=== PATIENT | female | born 1945 | race Caucasian/White ===

== ENCOUNTER → 2016-11-05 | Outpatient (CLI) | payer MEDICARE ==
[~2016-11-05] MED LIST: AMERINET CHOICE1 GM IV; AMITRIPTYLINE100 M1 PO; AMITRIPTYLINE25 MG PO; ARICEPT10 MG PO; ASPIRIN 325MG325 MG PO; ASPIRIN 81MG TA81 MG PO; CEFUROXIME AXE250 M1 PO; CELEXA40 MG PO; CLONAZEPAM 1MG T1 MG PO; DONEPEZIL HCL10 MG PO; ELAVIL25 MG PO; FIBER CON625 MG PO; HYDROCODONE1 TABLET PO; IRON TABLETS325 MG PO; ISOSORBIDE MONO60 MG PO; LEVAQUIN500 MG PO; LIPITOR40 MG PO; LORTAB 5/500 501 TAB PO; METOPROLOL25 MG PO; MOBIC15 MG PO; NORCO 325 MG-101 TAB PO; PLAVIX 75MG TAB75 MG PO; PRAVACHOL 40MG40 MG PO; PRILOSEC20 M1 PO; PROTONIX 40MG T40 MG PO; Prilosec20 MG PO; RANEXA500 M1 PO; RESTORIL 30MG C30 MG PO; SALINE FLUSH 1010 ML IV; Tramadol HCl50 MG PO; Xanax0.25 MG PO; ZITHROMAX 250M250 MG PO; ZITHROMAX Z-PA250 M2 PO
[2016-11-05 18:23] LABS: AMPHETAMINES/METAMPHETAMINES NEGATIVE ng/mL (<1000)
== END ==
LOC: LAB 17:15
PROVIDERS: Emergency Medicine
DX: Z79.899 Other long term (current) drug therapy (principal)

== ENCOUNTER → 2017-04-08 | Outpatient (CLI) | payer MEDICARE ==
[2017-04-08 17:42] LABS: AMPHETAMINES/METAMPHETAMINES NEGATIVE ng/mL (<1000)
== END ==
LOC: LAB 16:33
PROVIDERS: Emergency Medicine
DX: Z79.899 Other long term (current) drug therapy (principal)

== ENCOUNTER → 2017-07-10 | Outpatient (CLI) | payer MEDICARE ==
[2017-07-10 13:08] LABS: AMPHETAMINES/METAMPHETAMINES NEGATIVE ng/mL (<1000)
== END ==
LOC: LAB 11:14
PROVIDERS: Emergency Medicine
DX: Z79.899 Other long term (current) drug therapy (principal)

== ENCOUNTER → 2017-08-11 | Outpatient (CLI) | payer MEDICARE ==
[2017-08-11 13:51] LABS: AMPHETAMINES/METAMPHETAMINES NEGATIVE ng/mL (<1000)
== END ==
LOC: LAB 12:23
PROVIDERS: Emergency Medicine
DX: Z79.899 Other long term (current) drug therapy (principal)

== ENCOUNTER 2017-08-25 13:09 | Inpatient (IN) | payer MEDICARE ==
[~2017-08-25] VITALS: Ht 162.6 cm; Wt 68.7 kg
[2017-08-25 13:11] VITALS: BP 118/57
[2017-08-25 13:35] LABS: LYMPH # 0.8 K/mm3 (0.7-4.5); LYMPH % 4.9 % (10-50.0)
[2017-08-25 13:36] LABS: URINE BILIRUBIN - DIPSTICK NEGATIVE (NEG); URINE BLOOD NEGATIVE (NEG)
[2017-08-25 13:46] LABS: HEMOGLOBIN 13.2 g/dL (12.2-16.2)
--- NOTE | 2017-08-25 13:52 | Emergency Room Report ---
History of Present Illness Time Seen by MD Saenz Presenting Problem in Triage Pt arrived:Ambulance Stretcher Presenting Problem:PT C/O INCREASED WEAKNESS. N/V/D FOR THE PAST COUPLE OF DAYS Onset of symptoms date/time:/ or onset unknown for:MEDICAL HX UNKNOWN Treatment Prior to Arrival: PT MONITORED AND V/S WNL SPA MANAGER Provided by:EMT Sepsis Risk Assessment: Temp: 98.9 B/P: 118/57 MAP: 77 Pulse: 85 Resp: 16 Recent fever? N Clinical Suspician of Infection? N Mental Status: 1 - Regular (Normal Baseline) Sepsis Risk:Low Sepsis Risk Have you (or family members/close friends) recently traveled outside the [place]? N If Yes, where/when: Have you had exposure to infectious disease within the past month? N TB? Other? Specify: Source patient, RN notes reviewed Exam Limitations no limitations Comment Pt comes to the ED with increasing weakness, Nausea, vomiting, and diarrhea for the past 2 to 3 days. She has had a colonoscopy and EGD by a Dr. Acosta in [place] but no definitive diagnosis that she is aware of. She has lost about 40 to 50 lbs in the past year by her history. She also has a history of CAD s/p CABG X 3 in 1993 and has 5 stents in the heart as well. She has also had her GB and appendix removed and polyps taken from the colon. She has not noticed any BRB nor melena Cardiac Chest Pain Chest pain indicative of cardiac No ALLERGIES Coded Allergies: Iodinated Contrast- Oral and IV Dye (IODINATED CONTRAST MEDIA - IV DYE) () Latex, Natural Rubber (02/01/16) ciprofloxacin (From CIPRO) (02/01/16) Home Medications Active Scripts SOD CHLOR 0.9% FLUSH (Saline Flush 10 Ml Syringe) 10 ML IV BID #20 INJ Ref 2 Prov: 10/26/15 Reported Medications HYDROCODONE/ACETAMINOPHEN (Matthews 10-325 Tablet) 1 TAB PO Q6H Atorvastatin Calcium (Atorvastatin) 40 MG PO QHS ASPIRIN (Aspirin) 81 MG PO DAILY Pantoprazole Sodium (Protonix 40MG TAB) 40 MG PO DAILY ISOSORBIDE MONONITRATE (Isosorbide Mononitrate ER) 60 MG PO DAILY CLOPIDOGREL BISULFATE (PLAVIX) 75 MG PO DAILY RANOLAZINE (RANEXA) 500 MG PO BID Clonazepam (Clonazepam 1MG) 1 MG PO BIDP PRN anxiety #60 DONEPEZIL HCL (Donepezil HCl) 10 MG PO QHS #30 History Medical History General CAD? No Angina: Yes SC: Yes Hypertension? Yes Hyperlipidemia? Yes CHF? No DVT? No PE? No COPD? Yes Asthma? Yes Anemia? No GERD? Yes Gastric ulcers? No GI Bleed? No Hernia? No Thyroid Problems? No Hypothyroidism? No CVA? Yes Seizures? No Diabetes? No Renal Insuffiency? No End Stage Renal Disease? No UTI? No Stones? No BPH? No GB Disease: Yes Nephritic Syndrome? No Asplenia? No Hepatitis? No Sickle Cell Disease? No Arthritis? Yes Migraines? No Cataracts? Yes Glaucoma? No MRSA? No HIV? No TB? No Anxiety? Yes Depression? No Cancer? No More? No Immunization Hx DT/Tetanus 1-4 YRS Flu 2014-16FSN Pneumonia Received In Past Surgical Hx Previous Surgery?Y Coronary Artery Bypass SEVERAL LUMPECTOMIES GALLBLADDER appendectomy HYSTERECTOMY D&C- SEVERAL STENT PLACEMENT X4 Family History Family Hx Diabetes No CAD Yes Hypertension Yes Hyperlipidemia No Cancer Yes TB No Social History Smoking Hx Smoker: Former Smoker Tobacco: No Alcohol Alcohol: No Review of Systems All Other Systems Reviewed and Negative Constitutional see HPI Cardiovascular see HPI Gastrointestinal see HPI Physical Exam Vital Signs Vital Signs Date Time Temp Pulse Resp B/P Pulse O2 O2 Flow FiO2 Ox Delivery Rate 08/25 1652 101.2 85 18 120/51 96 2 08/25 1539 100.8 89 20 131/55 96 08/25 1407 16 08/25 1311 98.9 85 16 118/57 95 General Appearance moderate distress, lethargic Respiratory Status No: respiratory distress. Lung Sounds bilateral: normal breath sounds. Cardiovascular normal exam, regular rate/rhythm Gastrointestinal abnormal bowel sounds, distended, no guarding, no rebound, tenderness Neurologic alert, putty glazer II-XII nml as tested Medical Decision Making LABS/Meds/Orders Pt receiving controlled substance in ED? Yes Lazaro was queried for this patient? No Reason not queried - emergent pt cond=no time Results/Orders Laboratory Tests 08/25/17 1435: Lactic Acid 1.6 08/25/17 1320: B-Natriuretic Peptide 215 H 08/25/17 1320: Sodium 136, Potassium 3.5, Chloride 99, Carbon Dioxide 28, BUN 10, Creatinine 1.1 H, Estimated Creat Clear 44 L, Estimated GFR (MDRD) 49 L, Glucose 80, Calcium 9.5, Total Bilirubin 0.8, AST 25, ALT 28, Alkaline Phosphatase 98, Creatine Kinase 65, CK-MB (CK-2) Rel Index 0.8, CK and CKMB Interp < 0.5, Troponin I < 0.02, Total Protein 7.8, Albumin 3.1 L, Globulin 4.7 H, Albumin/ Globulin Ratio 0.7 L, Amylase 20 L, Lipase 48 L, WBC 16.9 H, RBC 4.54, Hgb 13.2, Hct 40.3, MCV 88.8, RDW 13.1, Plt Count 294, MPV 7.4, Gran % 91.6 H, Gran # 15.5 H, Total Counted 100, Lymphocytes % 4.9 L, Monocytes % 2.3, Eosinophils % 0.9, Basophils % 0.4, Neutrophils 92 H, Lymphocytes (Manual) 5 L, Lymphocytes # 0.8, Monocytes (Manual) 2, Monocytes # 0.4, Eosinophils # 0.2, Eosinophils # (Manual) 1, Basophils # 0.1, RBC/WBC/PLT Morphology NORMAL, Platelet Estimate NORMAL, PUBS MCHC 32.5, MCH 28.8, Urine Color YELLOW, Urine Appearance CLEAR, Urine pH 6.0, Ur Specific [place] 1.020, Urine Protein TRACE H, Urine Ketones TRACE H, Urine Blood NEGATIVE, Urine Nitrate NEGATIVE, Urine Bilirubin NEGATIVE, Urine Urobilinogen 1.0, Ur Leukocyte Esterase 1+ H, Urine RBC OCC, Urine WBC 3-5, Ur Squamous Epith Cells OCC, Urine Bacteria 2+, Urine Glucose NEGATIVE Current Medication Orders Sig/Mack Start time Last Medication Dose Route Stop Time Status Admin Acetaminophen 1,000 MG ONCE ONE 08/25 1730 AC PO 08/25 173 Azithromycin 500 MG ONCE ONE 08/25 173 AC Sodium Chloride 250 ML IV 08/25 1829 Ceftriaxone Sodium 1 GM ONCE ONE 08/25 173 AC Sodium Chloride 50 ML IV 08/25 1759 Sodium Chloride 50 ML .STK-MED ONE 08/25 1724 DC IV Ceftriaxone Sodium 0 .STK-MED ONE 08/25 172 DC IV Acetaminophen 0 .STK-MED ONE 08/25 1721 DC PO Sodium Chloride 1,000 ML .Q6H40M 08/25 1545 AC 08/25 IV 08/26 0339 1550 Sodium Chloride 10 ML PRN PRN 08/25 1545 AC IV 08/26 1539 Sodium Chloride 1,000 ML .STK-MED ONE 08/25 1542 DC IV Diatrizoate Meglum/ 30 ML ONCE ONE 08/25 1430 DCr 08/25 Diatrizoate Sod PO 08/25 1431 1438 Diatrizoate Meglum/ 0 .STK-MED ONE 08/25 1430 DCr Diatrizoate Sod .ROUTE Morphine Sulfate 2 MG ONCE ONE 08/25 1400 DC 08/25 IV 08/25 1401 1407 Ondansetron HCl 4 MG ONCE ONE 08/25 1400 DC 08/25 IV 08/25 1401 1407 Morphine Sulfate 0 .STK-MED ONE 08/25 1355 DC .ROUTE Ondansetron HCl 0 .STK-MED ONE 08/25 1355 DC .ROUTE Ondansetron HCl 4 MG ONCE ONE 08/25 1330 DC 08/25 IV 08/25 1331 1331 Sodium Chloride 10 ML PRN PRN 08/25 1330 AC IV 08/26 1316 Sodium Chloride 1,000 ML .Q1H1M 08/25 1330 DC 08/25 IV 08/25 1430 1332 Sodium Chloride 10 ML PRN PRN 08/25 1330 AC IV 08/26 1329 Ondansetron HCl 0 .STK-MED ONE 08/25 1314 DC .ROUTE Sodium Chloride 1,000 ML .STK-MED ONE 08/25 1314 DC IV Orders Procedure Date/time Status DIET-NOTHING BY MOUTH 08/25 D Active CULTURE, BLOOD 08/25 1420 Active LACTIC ACID 08/[address] ABD/PELVIS REQ 08/25 1348 Complete BRAIN NATRIURETIC PEPTIDE 08/25 1348 Complete CULTURE, URINE 08/25 1320 Active DIFFERENTIAL-WBC 08/25 1320 Complete IV SALINE LOCK 08/25 1316 Active URINALYSIS/COMPLETE 08/25 1316 Complete LIPASE 08/25 1316 Complete CBC WITH AUTO DIFF 08/25 1316 Complete CARDIAC ENZYMES 08/25 1316 Complete CHEM 12 PROFILE 08/25 1316 Complete AMYLASE 08/25 1316 Complete Departure Departure Time of Disposition 1723 Disposition Still a Patient Clinical Impression Primary Impression: Bilateral pneumonia Qualifiers: Pneumonia type: due to unspecified organism Lung location: unspecified part of lung Qualified Code: J18.9 - Pneumonia, unspecified organism Secondary Impressions: CAD (coronary artery disease) Qualifiers: Coronary Disease-Associated Artery/Lesion type: unspecified vessel or lesion type [place] vs. transplanted heart: [place] heart Associated angina: without angina Qualified Code: I25.10 - Atherosclerotic heart disease of [place] coronary artery without angina pectoris COPD exacerbation Condition STABLE Referrals Jean NICHOLE,Eric Alvarez (Family) Additional Instructions Admitted to Dr. Pena to Acute per Dr. Gonzalez Discharge Counseling Counseled pt/family regarding diagnosis, test results, medications/RX, home care, follow up needs ED Critical Care Critical Care No If Critical Care minutes are documented, the time involved in the performance of seperately reportable procedures was not counted toward critical care time documented. I directly delivered medical care to this critically ill and/or injured patient. Timely evaluation and treatment was necessary to address the significant organ system(s) dysfunction present in this patient. at 1726
[2017-08-25 13:53] LABS: URINE SQUAMOUS CELLS OCC #/hpf (0-5)
--- OUTSIDE RECORDS SUMMARY | 2017-08-25 13:56 | External Medical Summary Rpt | CCD ---
Author Author , PAMELA SANTIAGO Address Unknown Phone [email or web address] Purpose Continuity of Care Document - 01-17-2017 through 2016 Problems Code Diagnosis DOS Provider Status R10.84 Generalized abdominal pain R63.4 Abnormal weight loss Results Labs Lab Lab Date Result Refere Interp Status Commen Order Detail nces retati t Range on Urinalysis with microscopy (08-25-2017 13:20) Urine CLEAR CLEAR complet appeara 017 CLEAR L ed nce 13:20 determi nation Bacteri 2+ 2+ L O complet a 017 ed detecti 13:20 on in urine sedimen t by Urine NEGATIV NEG complet total 017 E ed bilirub 13:20 NEGATIV in E L detecti on by test Urine NEGATIV NEG complet blood 017 E ed detecti 13:20 NEGATIV on E L Urine YELLOW YELLOW complet color 017 YELLOW ed 13:20 L Glucose = NEG complet ur 017 NEGATIV ed test 13:20 E strip Urine TRACE NEG complet ketones 017 TRACE L ed 13:20 mg/dL detecti on by automat ed julia Mucus 1+ 1+ L NEG complet detecti 017 ed on in 13:20 urine sedimen t by lig Urine NEGATIV NEG complet nitrite 017 E ed 13:20 NEGATIV detecti E L on by test strip Urine = 6.0 5.0-8.5 complet pH 017 ed 13:20 Urine = TRACE NEG complet protein 017 mg/dL ed 13:20 measure ment by automat ed t Erythro OCC OCC 0 complet cytes 017 L ed detecti 13:20 rbc/hpf on in urine sedimen t Urine = 1.020 1.005-1 complet specifi 017 .030 ed c 13:20 gravity measure ment [place] OCC OCC 0-5 complet s 017 L ed epithel 13:20 #/hpf ial cells detecti on in u Urine 1.0 1.0 NEG complet urobili 017 L ed nogen 13:20 E.U./dL detecti on by test str Urine 3 - 5 O complet leukocy 017 wbc/hpf ed julia 13:20 count (number /volume ) Urine 9-analyte drugs of abuse screening (08-11-2017 09:40) Comment: Positive urine drug screen samples are stored for 7 days. Comment: Contact the Lab if confirmation of positives is needed. Urine = <200 complet barbitu 017 NEGATIV ed rates 09:40 E ng/mL measure ment by screen Urine NEGATIV <1000 complet ampheta 017 E ed mine 09:40 NEGATIV screeni E L ng test ng/mL Serum = 200 complet or 017 NEGATIV ng/mL ed plasma 09:40 E ng/mL benzodi azepine s measure m Cocaine = <300 complet 017 NEGATIV ed measure 09:40 E ng/g ment (mass/v olume) Methado = <300 complet ne 017 NEGATIV ed measure 09:40 E ng/mL ment (mass/v olume) Opiates = <300 complet 017 POSITIV ed measure 09:40 E ng/mL ment (mass/v olume) Comment: This is an UNCONFIRMED result. This result is for medical Comment: purposes and/or treatment only. Phencyc = <25 complet lidine 017 NEGATIV ed measure 09:40 E ng/mL ment (mass/v olume) 11-hydr --2 NEGATIV <50 complet oxy 017 E ed delta-9 09:40 NEGATIV E L tetrahy ng/mL drocann abinol Drugs identified in Urine by Screen method (08-11-2017 09:40) Ampheta 11-13-2 NEGATIV <1000 complet mine 017 E ed [Presen 09:40 ce] in Urine by Screen method 11-Hydr --2 NEGATIV <50 complet oxy 017 E ed delta-9 09:40 tetrahy drocann abinol [Presen ce] in Unspeci fied specime n Urine 9-analyte drugs of abuse screening (07-10-2017 09:00) Comment: Positive urine drug screen samples are stored for 7 days. Comment: Contact the Lab if confirmation of positives is needed. Urine NEGATIV <1000 complet ampheta 017 E ed mine 09:00 NEGATIV screeni E L ng test ng/mL Urine = <200 complet barbitu 017 NEGATIV ed rates 09:00 E ng/mL measure ment by screen Serum = 200 complet or 017 NEGATIV ng/mL ed plasma 09:00 E ng/mL benzodi azepine s measure m Cocaine = <300 complet 017 NEGATIV ed measure 09:00 E ng/g ment (mass/v olume) Methado = <300 complet ne 017 NEGATIV ed measure 09:00 E ng/mL ment (mass/v olume) Opiates = <300 complet 017 POSITIV ed measure 09:00 E ng/mL ment (mass/v olume) Comment: This is an UNCONFIRMED result. This result is for medical Comment: purposes and/or treatment only. Phencyc = <25 complet lidine 017 NEGATIV ed measure 09:00 E ng/mL ment (mass/v olume) 11-hydr NEGATIV <50 complet oxy 017 E ed delta-9 09:00 NEGATIV E L tetrahy ng/mL drocann abinol Drugs identified in Urine by Screen method (07-10-2017 09:00) Ampheta NEGATIV <1000 complet mine 017 E ed [Presen 09:00 ce] in Urine by Screen method 11-Hydr NEGATIV <50 complet oxy 017 E ed delta-9 09:00 tetrahy drocann abinol [Presen ce] in Unspeci fied specime n Drugs identified in Urine by Screen method (06-06-2017 14:50) Ampheta NEGATIV <1000 complet mine 017 E ed [Presen 14:50 ce] in Urine by Screen method -Hydr NEGATIV <50 complet oxy 017 E ed delta-9 14:50 tetrahy drocann abinol [Presen ce] in Unspeci fied specime n Drugs identified in Urine by Screen method (05-09-2017 13:15) Ampheta NEGATIV <1000 complet mine 017 E ed [Presen 13:15 ce] in Urine by Screen method 11-Hydr NEGATIV <50 complet oxy 017 E ed delta-9 13:15 tetrahy drocann abinol [Presen ce] in Unspeci fied specime n Drugs identified in Urine by Screen method (04-08-2017 14:15) Ampheta 04-08-2 NEGATIV <1000 complet mine 017 E ed [Presen 14:15 ce] in Urine by Screen method 11-Hydr NEGATIV <50 complet oxy 017 E ed delta-9 14:15 tetrahy drocann abinol [Presen ce] in Unspeci fied specime n Drugs identified in Urine by Screen method (03-11-2017 10:00) Ampheta 03-11-2 NEGATIV <1000 complet mine 017 E ed [Presen 10:00 ce] in Urine by Screen method 11-Hydr 2 NEGATIV <50 complet oxy 017 E ed delta-9 10:00 tetrahy drocann abinol [Presen ce] in Unspeci fied specime n Creat Bld-mCnc (01-17-2017 16:33) Creat 2 1.10 0.60-1. complet BldA-mC 017 mg/dL 30 ed nc 16:33 Comment: Serial Number: [id number] [employer]: [id number]
--- OUTSIDE RECORDS SUMMARY | 2017-08-25 13:56 | External Medical Summary Rpt | CCD ---
Author Author , PAMELA SANTIAGO Address Unknown Phone [email or web address] Purpose Continuity of Care Document - 01-17-2017 [...] 30 ed nc 16:33 Comment: Serial Number: [id number] [employer]: [id number]
--- OUTSIDE RECORDS SUMMARY | 2017-08-25 13:57 | External Medical Summary Rpt | CCD ---
Author Author , PAMELA SANTIAGO Address Unknown Phone [email or web address] Immunization Name Date Rout CVX Reac Dose Comm Prov Is Faci e tion ent ider Refu lity Give sed n Infl 10-1 135 0.5 Hist GSHA No GSHA uenz 2-20 mL oric NE NE a, 17 al High Info rmat Dose ion - Sour ce Unsp ecif ied PCV1 10-0 Intr 133 999 Hist GSHA No GSHA 3 1-20 amus oric NE NE 15 cula al r Info rmat ion - Sour ce Unsp ecif ied
--- OUTSIDE RECORDS SUMMARY | 2017-08-25 13:57 | External Medical Summary Rpt | CCD ---
Author Author [employer] Organization [employer] Address Unknown Phone Unavailable Purpose Continuity of Care Document - through 2016
--- OUTSIDE RECORDS SUMMARY | 2017-08-25 13:57 | External Medical Summary Rpt | CCD ---
Author Author , PAMELA SANTIAGO Address Unknown Phone [email or web address] Immunization Name Date Rout CVX Reac Dose [...]
--- OUTSIDE RECORDS SUMMARY | 2017-08-25 13:57 | External Medical Summary Rpt ---
Author Author PAMELA Nesbitt, MARTYMARY Production Organization PAMELA [employer] Address Unknown Phone Unavailable Results Drugs identified in Urine by Screen method Observa Value Referen Units Interpr Notes Date tion ce etation Range Positive urine drug screen samples are stored for 7 days. Contact the Lab if confirmation of positives is needed. Ampheta NEGATIV <1000 ng/mL No No Aug 11 mine E informa informa 2016 [Presen tion in tion in 9:40 AM ce] in source source Urine data data by Screen method Barbitura <200 ng/mL No No Aug 11 julia informati informati 2017 9:40 [Mass/vol on in on in AM ume] in source source Urine by data data Screen method Benzodiaz 200 ng/mL ng/mL No No Aug 11 epines informati informati 2017 9:40 [Mass/vol on in on in AM ume] in source source Serum or data data Plasma by Screen method Cocaine <300 ng/g No No Aug 11 [Mass/vol informati informati 2017 9:40 ume] in on in on in AM Unspecifi source source ed data data specimen Methadone <300 ng/mL No No Aug 11 informati informati 2016 9:40 [Mass/vol on in on in AM ume] in source source Unspecifi data data ed specimen Opiates <300 ng/mL High This is Aug 11 [Mass/vol an 2017 9:40 ume] in UNCONFIRM AM Unspecifi ED ed result. specimen This result is for medicalpu rposes and/or treatment only. Phencycli <25 ng/mL No No Aug 11 dine informati informati 2017 9:40 [Mass/vol on in on in AM ume] in source source Unspecifi data data ed specimen 11-Hydr NEGATIV <50 ng/mL No No Aug 11 oxy E informa informa 2017 delta-9 tion in tion in 9:40 AM source source tetrahy data data drocann abinol [Presen ce] in Unspeci fied specime n Drugs identified in Urine by Screen method Observa Value Referen Units Interpr Notes Date tion ce etation Range Positive urine drug screen samples are stored for 7 days. Contact the Lab if confirmation of positives is needed. Ampheta NEGATIV <1000 ng/mL No No Jul 10 mine E informa informa 2016 [Presen tion in tion in 9:00 AM ce] in source source Urine data data by Screen method Barbitura <200 ng/mL No No Jul 10 julia informati informati 2016 9:00 [Mass/vol on in on in AM ume] in source source Urine by data data Screen method Benzodiaz 200 ng/mL ng/mL No No Jul 10 epines informati informati 2016 9:00 [Mass/vol on in on in AM ume] in source source Serum or data data Plasma by Screen method Cocaine <300 ng/g No No Jul 10 [Mass/vol informati informati 2016 9:00 ume] in on in on in AM Unspecifi source source ed data data specimen Methadone <300 ng/mL No No Jul 10 informati informati 2016 9:00 [Mass/vol on in on in AM ume] in source source Unspecifi data data ed specimen Opiates <300 ng/mL High This is Jul 10 [Mass/vol an 2017 9:00 ume] in UNCONFIRM AM Unspecifi ED ed result. specimen This result is for medicalpu rposes and/or treatment only. Phencycli <25 ng/mL No No Jul 10 dine informati informati 2016 9:00 [Mass/vol on in on in AM ume] in source source Unspecifi data data ed specimen 11-Hydr NEGATIV <50 ng/mL No No Jul 10 oxy E informa informa 2017 delta-9 tion in tion in 9:00 AM source source tetrahy data data drocann abinol [Presen ce] in Unspeci fied specime n Drugs identified in Urine by Screen method Observa Value Referen Units Interpr Notes Date tion ce etation Range Positive urine drug screen samples are stored for 7 days. Contact the Lab if confirmation of positives is needed. Ampheta NEGATIV <1000 ng/mL No No Jun 06 mine E informa informa 2016 [Presen tion in tion in 2:50 PM ce] in source source Urine data data by Screen method Barbitura <200 ng/mL No No Sep 8 julia informati informati 2017 2:50 [Mass/vol on in on in PM ume] in source source Urine by data data Screen method Benzodiaz 200 ng/mL ng/mL No No Sep 8 epines informati informati 2017 2:50 [Mass/vol on in on in PM ume] in source source Serum or data data Plasma by Screen method Cocaine <300 ng/g No No Sep 8 [Mass/vol informati informati 2017 2:50 ume] in on in on in PM Unspecifi source source ed data data specimen Methadone <300 ng/mL No No Sep 8 informati informati 2017 2:50 [Mass/vol on in on in PM ume] in source source Unspecifi data data ed specimen Opiates <300 ng/mL High This is Sep 8 [Mass/vol an 2017 2:50 ume] in UNCONFIRM PM Unspecifi ED ed result. specimen This result is for medicalpu rposes and/or treatment only. Phencycli <25 ng/mL No No Sep 8 dine informati informati 2017 2:50 [Mass/vol on in on in PM ume] in source source Unspecifi data data ed specimen 11-Hydr NEGATIV <50 ng/mL No No May 8 oxy E informa informa 2017 delta-9 tion in tion in 2:50 PM source source tetrahy data data drocann abinol [Presen ce] in Unspeci fied specime n Drugs identified in Urine by Screen method Observa Value Referen Units Interpr Notes Date tion ce etation Range Positive urine drug screen samples are stored for 7 days. Contact the Lab if confirmation of positives is needed. Ampheta NEGATIV <1000 ng/mL No No May 09 mine E informa informa 2017 [Presen tion in tion in 1:15 PM ce] in source source Urine data data by Screen method Barbitura <200 ng/mL No No May 09 julia informati informati 2017 1:15 [Mass/vol on in on in PM ume] in source source Urine by data data Screen method Benzodiaz 200 ng/mL ng/mL No No May 09 epines informati informati 2017 1:15 [Mass/vol on in on in PM ume] in source source Serum or data data Plasma by Screen method Cocaine <300 ng/g No No May 09 [Mass/vol informati informati 2017 1:15 ume] in on in on in PM Unspecifi source source ed data data specimen Methadone <300 ng/mL No No May 09 informati informati 2017 1:15 [Mass/vol on in on in PM ume] in source source Unspecifi data data ed specimen Opiates <300 ng/mL High This is May 09 [Mass/vol an 2017 1:15 ume] in UNCONFIRM PM Unspecifi ED ed result. specimen This result is for medicalpu rposes and/or treatment only. Phencycli <25 ng/mL No No May 09 dine informati informati 2016 1:15 [Mass/vol on in on in PM ume] in source source Unspecifi data data ed specimen 11-Hydr NEGATIV <50 ng/mL No No May 09 oxy E informa informa 2017 delta-9 tion in tion in 1:15 PM source source tetrahy data data drocann abinol [Presen ce] in Unspeci fied specime n Drugs identified in Urine by Screen method Observa Value Referen Units Interpr Notes Date tion ce etation Range Positive urine drug screen samples are stored for 7 days. Contact the Lab if confirmation of positives is needed. Ampheta NEGATIV <1000 ng/mL No No Apr 08 mine E informa informa 2016 [Presen tion in tion in 2:15 PM ce] in source source Urine data data by Screen method Barbitura <200 ng/mL No No Apr 08 julia informati informati 2016 2:15 [Mass/vol on in on in PM ume] in source source Urine by data data Screen method Benzodiaz 200 ng/mL ng/mL No No Apr 08 epines informati informati 2017 2:15 [Mass/vol on in on in PM ume] in source source Serum or data data Plasma by Screen method Cocaine <300 ng/g No No Apr 08 [Mass/vol informati informati 2017 2:15 ume] in on in on in PM Unspecifi source source ed data data specimen Methadone <300 ng/mL No No Apr 08 informati informati 2017 2:15 [Mass/vol on in on in PM ume] in source source Unspecifi data data ed specimen Opiates <300 ng/mL High This is Apr 08 [Mass/vol an 2016 2:15 ume] in UNCONFIRM PM Unspecifi ED ed result. specimen This result is for medicalpu rposes and/or treatment only. Phencycli <25 ng/mL No No Apr 08 dine informati informati 2016 2:15 [Mass/vol on in on in PM ume] in source source Unspecifi data data ed specimen 11-Hydr NEGATIV <50 ng/mL No No Apr 08 oxy E informa informa 2017 delta-9 tion in tion in 2:15 PM source source tetrahy data data drocann abinol [Presen ce] in Unspeci fied specime n Drugs identified in Urine by Screen method Observa Value Referen Units Interpr Notes Date tion ce etation Range Positive urine drug screen samples are stored for 7 days. Contact the Lab if confirmation of positives is needed. Ampheta NEGATIV <1000 ng/mL No No Mar 11 mine E informa informa 2017 [Presen tion in tion in 10:00 ce] in source source AM Urine data data by Screen method Barbitura <200 ng/mL No No Mar 11 julia informati informati 2016 [Mass/vol on in on in 10:00 AM ume] in source source Urine by data data Screen method Benzodiaz 200 ng/mL ng/mL No No Mar 11 epines informati informati 2016 [Mass/vol on in on in 10:00 AM ume] in source source Serum or data data Plasma by Screen method Cocaine <300 ng/g No No Mar 11 [Mass/vol informati informati 2016 ume] in on in on in 10:00 AM Unspecifi source source ed data data specimen Methadone <300 ng/mL No No Mar 11 informati informati 2016 [Mass/vol on in on in 10:00 AM ume] in source source Unspecifi data data ed specimen Opiates <300 ng/mL High This is Mar 11 [Mass/vol an 2016 ume] in UNCONFIRM 10:00 AM Unspecifi ED ed result. specimen This result is for medicalpu rposes and/or treatment only. Phencycli <25 ng/mL No No Mar 11 dine informati informati 2016 [Mass/vol on in on in 10:00 AM ume] in source source Unspecifi data data ed specimen 11-Hydr NEGATIV <50 ng/mL No No Mar 11 oxy E informa informa 2017 delta-9 tion in tion in 10:00 source source AM tetrahy data data drocann abinol [Presen ce] in Unspeci fied specime n
[2017-08-25 14:01] LABS: BUN 10 mg/dL (7-18)
[2017-08-25 14:07] LABS: GFR (ESTIMATED) 49 ML/MIN (59-)
[2017-08-25 14:48] LABS: NEUTROPHILS 92 % (42-76)
--- NOTE | 2017-08-25 17:17 | RADIOLOGY REPORT PS360 ---
CT ABD PELVIS W/O CONTRAST CLINICAL INDICATION: Abdominal pain with nausea and vomiting ABD PAIN ORDERING PHYSICIAN: Charlie Blanca MD PATIENT AGE: 72 years COMPARISON: 05/06/2016 TECHNIQUE: Axial images obtained with sagittal and coronal reformats. PROCEDURE: Oral Contrast: Gastroview IV Contrast: None . FINDINGS: There is consolidation in the left lower lobe posteriorly consistent with pneumonia. Pleural calcification is once again noted on the left. There is a small area of consolidation in the right middle lobe laterally. Prior cholecystectomy without ductal dilatation. Scattered punctate calcifications are present within the liver. The spleen, adrenal glands, and pancreas are unremarkable. No intestinal obstruction or free air. Diverticulosis of the ethmoid colon but no evidence of diverticulitis. There is reported prior appendectomy. Prior hysterectomy. No abnormal fluid collection or focal inflammatory change. No acute bony anomalies. IMPRESSION: 1. Left lower lobe pneumonia with pleural calcification in the left lung base posteriorly and a small area of consolidation in the right middle lobe laterally 2. No intestinal obstruction or free air. 3. Sigmoid diverticulosis no evidence of diverticulitis
--- NOTE | 2017-08-25 17:18 | RADIOLOGY REPORT PS360 ---
CHEST-AP VIEW ONLY HISTORY: WEAKNESS ORDERING PHYSICIAN: Charlie Blanca MD PATIENT AGE: 72 years COMPARISON: 10/09/2016 FINDINGS: There has been a prior median sternotomy. Normal heart size. No evidence of CHF. There is consolidation within the left lower lobe and right upper lobe consistent with bilateral pneumonia. There may be a tiny left effusion. IMPRESSION: Bilateral pneumonia
--- OUTSIDE RECORDS SUMMARY | 2017-08-25 17:49 | External Medical Summary Rpt | CCD ---
Author Author , PAMELA Organization PAMELA Address Unknown Phone [email or web address] Purpose Continuity of Care Document - 01-17-2017 through 2016 Problems Code Diagnosis DOS Provider Status I25.10 ATHSCL HEART DISEASE OF [place] CORONARY ARTERY W/O ANG PCTRS J18.9 PNEUMONIA, UNSPECIFIED ORGANISM J44.1 CHRONIC OBSTRUCTIVE PULMONARY DISEASE W (ACUTE) EXACERBATIO N R10.84 Generalized abdominal pain R63.4 Abnormal weight loss Results Labs Lab Lab Date Result Refere Interp Status Commen Order Detail nces retati t Range on Blood lactic acid measurement (moles/vol (08-25-2017 14:35) Blood = 1.6 0.4-2.0 complet lactic 017 mmol/L ed acid 14:35 measure ment (moles/ vol Urinalysis with microscopy (08-25-2017 13:20) Urine CLEAR [...] ed julia 13:20 count (number /volume ) Amylase ser/plas (08-25-2017 13:20) Amylase = 20 25-115 complet 017 U/L ed ser/erika 13:20 s Cardiac enzymes (08-25-2017 13:20) Serum = 0.8 0-4.0 complet or 017 U/L ed plasma 13:20 creatin e kinase MB (CK-M Serum < 0.5 0.0-3.6 complet or 017 ng/mL ed plasma 13:20 creatin e kinase MB measu Serum = 65 26-192 complet or 017 U/L ed plasma 13:20 creatin e kinase measure m Serum < 0.02 0.00-0. complet or 017 ng/mL 06 ed plasma 13:20 troponi n i.cardi ac measu Comprehensive metabolic panel (08-25-2017 13:20) Serum = 0.7 1.1-1.8 complet or 017 ed plasma 13:20 albumin /globul in mass ra Serum = 3.1 3.4-5.0 complet or 017 gm/dL ed plasma 13:20 albumin measure ment (mas Serum = 98 46-116 complet or 017 U/L ed plasma 13:20 alkalin e phospha tase landy Serum = 0.8 0.2-1.0 complet or 017 mg/dL ed plasma 13:20 total bilirub in measure m Serum = 10 7-18 complet or 017 mg/dL ed plasma 13:20 urea nitroge n measure men Serum = 9.5 8.5-10. complet or 017 mg/dL 1 ed plasma 13:20 calcium measure ment (mas Serum = 99 98-107 complet or 017 mmoL/L ed plasma 13:20 chlorid e measure ment (mo Carbon = 28 21.0-32 complet dioxide 017 mmoL/L .0 ed 13:20 measure ment Serum = 1.1 0.55-1. complet or 017 mg/dL 02 ed plasma 13:20 creatin ine measure ment ( Estimat = 44 50-200 complet ion of 017 ML/MIN ed creatin 13:20 ine renal clearan ce Estimat = 49 59- complet ed 017 ML/MIN ed glomeru 13:20 lar filtrat ion rate (GF Comment: REFERENCE RANGE: >60 ML/MIN/1.73 SQUARE METERS Comment: If this patient is -[place]wegian, then multiply the Comment: result by 1.210. Serum = 4.7 1.3-3.2 complet globuli 017 gm/dL ed n 13:20 measure ment (mass/v olume) Serum = 80 74-106 complet or 017 mg/dL ed plasma 13:20 glucose measure ment (mas Serum = 3.5 3.5-5.1 complet potassi 017 mmoL/L ed um 13:20 measure ment Serum = 136 136-145 complet sodium 017 mmoL/L ed measure 13:20 ment Serum = 25 15-37 complet or 017 U/L ed plasma 13:20 asparta te aminotr ansfera ALT = 28 12-78 complet (SGPT) 017 U/L ed ser/erika 13:20 s Protein = 7.8 6.4-8.2 complet total 017 gm/dL ed ser/erika 13:20 s Lipase measurement (08-25-2017 13:20) Lipase = 48 73-393 complet measure 017 U/L ed ment 13:20 Brain natriuretic peptide (08-25-2017 13:20) Brain = 215 0-100 complet natriur 017 pg/mL ed etic 13:20 peptide CBC w auto diff (08-25-2017 13:20) Automat = 0.1 0-0.2 complet ed 017 K/MM3 ed blood 13:20 basophi l count (count/ vo Automat = 0.2 0.0-0.4 complet ed 017 K/mm3 ed blood 13:20 eosinop hil count Automat = 0.9 % 0.1-12. complet ed 017 0 ed blood 13:20 eosinop hils/10 0 leukocy t Blood = 15.5 1.8-7.8 complet granulo 017 K/mm3 ed cytes 13:20 automat ed count (numb Granulo = 91.6 37.0-80 complet cyte 017 % .0 ed percent 13:20 age Blood = 40.3 37.0-47 complet hematoc 017 % .0 ed rit 13:20 (volume fractio n) Blood = 13.2 12.2-16 complet hemoglo 017 g/dL .2 ed bin 13:20 measure ment (mass/v olum Absolut = 0.8 0.7-4.5 complet e 017 K/mm3 ed lymphoc 13:20 yte count Lymphoc = 4.9 % 10-50.0 complet yte 017 ed count, 13:20 blood, automat ed Mean = 28.8 27-31.2 complet corpusc 017 pg ed ular 13:20 hemoglo bin (MCH) determ Automat = 32.5 31.8-35 complet ed 017 g/dl .4 ed erythro 13:20 cyte mean corpusc ular h Automat = 88.8 82.2-97 complet ed 017 fl .8 ed erythro 13:20 cyte mean corpusc ular v Absolut = 0.4 0.1-1.0 complet e 017 K/mm3 ed monocyt 13:20 e count Blaine % = 2.3 % 1.7-9.3 complet 017 ed 13:20 Automat = 7.4 7.4-10. complet ed 017 fl 4 ed blood 13:20 platele t mean volume landy Blood = 294 142-424 complet platele 017 K/mm3 ed t count 13:20 Red = 4.54 4.2-5.4 complet blood 017 M/mm3 ed cell 13:20 count Automat = 13.1 11.5-17 complet ed 017 % .5 ed erythro 13:20 cyte distrib ution width Blood = 16.9 4.8-10. complet leukocy 017 K/MM3 8 ed julia 13:20 count (number /volume ) Baso % = 0.4 % 0.1-2.0 complet 017 ed 13:20 Differential panel, method unspecified - (08-25-2017 13:20) Manual = 1 % 0-3 complet blood 017 ed eosinop 13:20 hils/10 0 leukocy julia LYMPH 5 % 10-50 complet 017 ed 13:20 Monocyt = 2 % 2-9 complet e % 017 ed 13:20 Platele NORMAL complet t 017 NORMAL ed estimat 13:20 L e Neutrop = 92 % 42-76 complet hil 017 ed count 13:20 RBC NORMAL complet morphol 017 NORMAL ed ogy 13:20 L Blood = 100 complet total 017 #CELLS ed cell 13:20 count Differential panel, method unspecified - (08-25-2017 13:20) LYMPH 5 % 10% - Low complet 017 50% ed 13:20 Platele NORMAL complet ts 017 ed [Presen 13:20 ce] in Blood by Light microsc opy Erythro NORMAL complet cyte 017 ed morphol 13:20 ogy finding [Identi fier] in Blood Urinalysis dipstick W Reflex Microscopic panel in Urine (08-25-2017 13:20) Bacteri 2+ O complet a 017 ed [Presen 13:20 ce] in Urine sedimen t by Light microsc opy Erythro 08-25-2 OCC 0 complet cytes 017 ed [Presen 13:20 ce] in Urine sedimen t by Light microsc opy Epithel 08-25-2 OCC 0#/hp complet ial 017 f - ed cells.s 13:20 5#/hp quamous f [Presen ce] in Urine sedimen t by Microsc opy high power field Leukocy 08-25- 3-5 O complet julia 017 wbc/hpf ed [#/volu 13:20 me] in Urine Urinalysis dipstick W Reflex Microscopic panel in Urine (08-25-2017 13:20) Appeara CLEAR CLEAR complet nce of 017 ed Urine 13:20 Bilirub NEGATIV NEG complet in 017 E ed [Presen 13:20 ce] in Urine by Test strip Erythro NEGATIV NEG complet cytes 017 E ed [Presen 13:20 ce] in Urine Color YELLOW YELLOW complet of 017 ed Urine 13:20 Ketones TRACE NEG Abnorma complet 017 l ed [Presen 13:20 ce] in Urine by Automat ed test strip Mucus 1+ NEG Abnorma complet [Presen 017 l ed ce] in 13:20 Urine sedimen t by Light microsc opy Nitrite NEGATIV NEG complet 017 E ed [Presen 13:20 ce] in Urine by Test strip Urobili 08-25-2 1.0 NEG complet nogen 017 ed [Presen 13:20 ce] in Urine by Test strip Urine 9-analyte drugs of abuse screening (08-11-2017 09:40) Comment: Positive urine drug screen samples are stored for 7 days. Comment: Contact the Lab if confirmation of positives is needed. Urine 11-13-2 = <200 complet barbitu 017 NEGATIV ed rates 09:40 E ng/mL measure ment by screen Urine 11--2 NEGATIV <1000 complet ampheta 017 E ed mine 09:40 NEGATIV screeni E L ng test ng/mL Serum -13-2 = 200 complet or 017 NEGATIV ng/mL [...] 09:40 E ng/mL ment (mass/v olume) 11-hydr NEGATIV <50 complet oxy 017 E ed delta-9 09:40 NEGATIV E L tetrahy ng/mL drocann abinol Drugs identified in Urine by Screen method (08-11-2017 09:40) Ampheta NEGATIV <1000 complet mine 017 E [...] measure 09:00 E ng/mL ment (mass/v olume) -hydr NEGATIV <50 complet oxy 017 E ed delta-9 09:00 NEGATIV E L tetrahy ng/mL drocann abinol Drugs identified in Urine by Screen method (07-10-2017 09:00) Ampheta NEGATIV <1000 complet mine 017 E ed [Presen 09:00 ce] in Urine by Screen method -Hydr NEGATIV <50 complet oxy 017 E ed delta-9 09:00 tetrahy drocann abinol [Presen ce] in Unspeci fied specime n Drugs identified in Urine by Screen method (06-06-2017 14:50) Ampheta NEGATIV <1000 complet mine 017 E ed [Presen 14:50 ce] in Urine by Screen method 11-Hydr NEGATIV <50 complet oxy 017 E ed delta-9 14:50 tetrahy drocann abinol [Presen ce] in Unspeci fied specime n Drugs identified in Urine by Screen method (05-09-2017 13:15) Ampheta --2 NEGATIV <1000 complet mine 017 E ed [Presen 13:15 ce] in Urine by Screen method 11-Hydr 2 NEGATIV <50 complet oxy 017 E ed delta-9 13:15 tetrahy drocann abinol [Presen ce] in Unspeci fied specime n Drugs identified in Urine by Screen method (04-08-2017 14:15) Ampheta -2 NEGATIV <1000 complet mine 017 E ed [Presen 14:15 ce] in Urine by Screen method 11-Hydr NEGATIV <50 complet oxy 017 E ed delta-9 14:15 tetrahy drocann abinol [Presen ce] in Unspeci fied specime n Drugs identified in Urine by Screen method (03-11-2017 10:00) Ampheta NEGATIV <1000 complet mine 017 E ed [Presen 10:00 ce] in Urine by Screen method 11-Hydr NEGATIV <50 complet oxy 017 E ed delta-9 10:00 tetrahy drocann abinol [Presen ce] in Unspeci fied specime n Creat Bld-mCnc (01-17-2017 16:33) Creat 1.10 0.60-1. complet BldA-mC 017 mg/dL 30 ed nc 16:33 Comment: Serial Number: [id number] [employer] Foreman: [id number]
--- OUTSIDE RECORDS SUMMARY | 2017-08-25 17:49 | External Medical Summary Rpt | CCD ---
Author Author , PAMELA Organization PAMELA Address Unknown Phone [email or web address] Purpose Continuity of Care Document - 01-17-2017 through 2016 Problems Code Diagnosis DOS Provider Status I25.10 ATHSCL HEART DISEASE OF [place] CORONARY ARTERY W/O ANG PCTRS J18.9 PNEUMONIA, [...] SQUARE METERS Comment: If this patient is -[place]anese, then multiply the Comment: result by 1.210. [...] 017 K/mm3 ed monocyt 13:20 e count [place] % = 2.3 % 1.7-9.3 complet 017 [...] 30 ed nc 16:33 Comment: Serial Number: [id number] Practice Manager: [id number]
--- OUTSIDE RECORDS SUMMARY | 2017-08-25 17:49 | External Medical Summary Rpt | CCD ---
Author Author , PAMELA SANTIAGO Address Unknown Phone [email or web address] Immunization Name Date Rout CVX Reac Dose [...]
--- OUTSIDE RECORDS SUMMARY | 2017-08-25 17:49 | External Medical Summary Rpt | CCD ---
Author Author , PAMELA SANTIAGO Address Unknown Phone [email or web address] Immunization Name Date Rout CVX Reac Dose [...]
--- OUTSIDE RECORDS SUMMARY | 2017-08-25 17:50 | External Medical Summary Rpt ---
Author Author [employer], [employer] Organization [employer] Address Unknown Phone Unavailable Results Lactate [Moles/volume] in Blood Observa Value Referen Units Interpr Notes Date tion ce etation Range Lactate 0.4 - 2.0 mmol/L Normal No Aug 25 [Moles/vo informati 2016 2:35 lume] in on in PM Blood source data CBC W Auto Differential panel in Blood Observa Value Referen Units Interpr Notes Date tion ce etation Range Basophils 0 - 0.2 K/MM3 Normal No Aug 25 inform2016 1:20 [#/volume on in PM ] in source Blood by data Automated count Basophils 0.1 - 2.0 % Normal No Aug 25 informati 2016 1:20 leukocyte on in PM s in source Blood by data Automated count Eosinophi 0.0 - 0.4 K/mm3 Normal Aug 25 ls informati 2016 1:20 [#/volume on in PM ] in source Blood by data Automated count Eosinophi 0.1 - % Normal Aug 25 ls/100 12.0 informati 2016 1:20 leukocyte on in PM s in source Blood by data Automated count Granulocy 1.8 - 7.8 K/mm3 High Aug 25 julia informati 2016 1:20 [#/volume on in PM ] in source Blood by data Automated count Granulocy 37.0 - % High Aug 25 julia/100 80.0 informati 2016 1:20 leukocyte on in PM s in source Blood by data Automated count Hematocri 37.0 - % Normal Aug 25 t [Volume 47.0 informati 2016 1:20 on in PM Fraction] source of Blood data Hemoglobi 12.2 - g/dL No Aug 25 n 16.2 informati informati 2016 1:20 [Mass/vol on in on in PM ume] in source source Blood data data Lymphocyt 0.7 - 4.5 K/mm3 Normal Aug 25 es informati 2016 1:20 [#/volume on in PM ] in source Unspecifi data ed specimen by Automated count Lymphocyt 10 - 50.0 % Low Aug 25 es 2016 1:20 [#/volume on in PM ] in source Unspecifi data ed specimen by Automated count Erythrocy 27 - 31.2 pg Normal Aug 25 te mean inform2016 1:20 corpuscul on in PM ar source hemoglobi data n [Entitic mass] Erythrocy 31.8 - g/dl Normal Aug 25 te mean 35.4 inform2016 1:20 corpuscul on in PM ar source hemoglobi data n concentra tion [Mass/vol ume] by Automated count Erythrocy 82.2 - fl Normal Aug 25 te mean 97.8 informati 2016 1:20 corpuscul on in PM ar volume source [Entitic data volume] by Automated count Monocytes 0.1 - 1.0 K/mm3 Normal Aug 252016 1:20 [#/volume on in PM ] in source Blood by data Automated count Monocytes 1.7 - 9.3 % Normal No Aug 25 inform2016 1:20 leukocyte on in PM s in source Blood by data Automated count Platelet 7.4 - fl Normal Aug 25 mean 10.4 informati 2016 1:20 volume on in PM [Entitic source volume] data in Blood by Automated count Platelets 142 - 424 K/mm3 Normal Aug 252016 1:20 [#/volume on in PM ] in source Blood data Erythrocy 4.2 - 5.4 M/mm3 Normal No Aug 25 julia informati 2016 1:20 [#/volume on in PM ] in source Amniotic data fluid Erythrocy 11.5 - % Normal Aug 25 te 17.5 2016 1:20 distribut on in PM ion width source [Entitic data volume] by Automated count Leukocyte 4.8 - K/MM3 High Aug 25 s 10.8 informati 2016 1:20 [#/volume on in PM ] in source Blood data Differential panel, method unspecified - Observa Value Referen Units Interpr Notes Date tion ce etation Range Eosinophi 0 - 3 % Normal Aug 25 ls/100 informati 2016 1:20 leukocyte on in PM s in source Blood by data Manual count LYMPH 5 10 - 50 % Low Aug 252016 tion in 1:20 PM source data Monocytes 2 - 9 % Normal Aug 25 informati 2016 1:20 leukocyte on in PM s in source Blood by data Automated count Platele NORMAL No No No No Aug 25 ts informa informa informa informa 2016 [Presen tion in tion in tion in tion in 1:20 PM ce] in source source source source Blood data data data data by Light microsc opy Neutrophi 42 - 76 % High No Aug 25 ls informati 2016 1:20 [#/volume on in PM ] in source Blood by data Automated count Erythro NORMAL No No No No Aug 25 cyte informa informa informa informa 2017 morphol tion in tion in tion in tion in 1:20 PM ogy source source source source finding data data data data [Identi fier] in Blood Cells No #CELLS No No Aug 25 Counted informati informati informati 2016 1:20 Total [#] on in on in on in PM in Blood source source source data data data Natriutietic peptide B [Mass/volume] in Serum or Plasma Observa Value Referen Units Interpr Notes Date tion ce etation Range Natriutie 0 - 100 pg/mL High No Aug 25 tic informati 2016 1:20 peptide B on in PM source [Mass/vol data ume] in Serum or Plasma Urinalysis dipstick W Reflex Microscopic panel in Urine Observa Value Referen Units Interpr Notes Date tion ce etation Range Appeara CLEAR CLEAR No No No Aug 25 nce of informa informa informa 2016 Urine tion in tion in tion in 1:20 PM source source source data data data Bacteri 2+ O No No No Aug 25 a informa informa informa 2016 [Presen tion in tion in tion in 1:20 PM ce] in source source source Urine data data data sedimen t by Light microsc opy Bilirub NEGATIV NEG No No No Aug 25 in E informa informa informa 2016 [Presen tion in tion in tion in 1:20 PM ce] in source source source Urine data data data by Test strip Erythro NEGATIV NEG No No No Aug 25 cytes E informa informa informa 2016 [Presen tion in tion in tion in 1:20 PM ce] in source source source Urine data data data Color YELLOW YELLOW No No No Aug 25 of informa informa informa 2016 Urine tion in tion in tion in 1:20 PM source source source data data data Glucose NEG No No No Aug 25 [Mass/vol informati informati informati 2016 1:20 ume] in on in on in on in PM Urine by source source source Test data data data strip Ketones TRACE NEG mg/dL Abnorma No Aug 25 l inform2016 [Presen tion in 1:20 PM ce] in source Urine data by Automat ed test strip Mucus 1+ NEG No Abnorma No Aug 25 [Presen informa l informa 2016 ce] in tion in tion in 1:20 PM Urine source source sedimen data data t by Light microsc opy Nitrite NEGATIV NEG No No No Aug 25 E informa informa informa 2016 [Presen tion in tion in tion in 1:20 PM ce] in source source source Urine data data data by Test strip pH of 5.0 - 8.5 No Normal No Aug 25 Urine informati informati 2016 1:20 on in on in PM source source data data Protein NEG mg/dL High No Aug 25 [Mass/vol informati 2016 1:20 ume] in on in PM Urine by source Automated data test strip Erythro OCC 0 rbc/hpf No No Aug 25 cytes informa informa 2016 [Presen tion in tion in 1:20 PM ce] in source source Urine data data sedimen t by Light microsc opy Specific 1.005 - No Normal No Aug 25 gravity 1.030 informati informati 2016 1:20 of Urine on in on in PM source source data data Epithel OCC 0 - 5 #/hpf No No Aug 25 ial informa informa 2016 cells.s tion in tion in 1:20 PM quamous source source data data [Presen ce] in Urine sedimen t by Microsc opy high power field Urobili 1.0 NEG E.U./dL No No Aug 25 nogen informa informa 2016 [Presen tion in tion in 1:20 PM ce] in source source Urine data data by Test strip Leukocy [3 O wbc/hpf No No Aug 25 julia wbc/hpf informa informa 2016 [#/volu ; 5 tion in tion in 1:20 PM me] in wbc/hpf source source Urine ] data data Urinalysis dipstick W Reflex Microscopic panel in Urine Observa Value Referen Units Interpr Notes Date tion ce etation Range Appeara CLEAR CLEAR No No No Aug 25 nce of informa informa informa 2016 Urine tion in tion in tion in 1:20 PM source source source data data data Bilirub NEGATIV NEG No No No Aug 25 in E informa informa informa 2016 [Presen tion in tion in tion in 1:20 PM ce] in source source source Urine data data data by Test strip Erythro NEGATIV NEG No No No Aug 25 cytes E informa informa informa 2016 [Presen tion in tion in tion in 1:20 PM ce] in source source source Urine data data data Color YELLOW YELLOW No No No Aug 25 of informa informa informa 2016 Urine tion in tion in tion in 1:20 PM source source source data data data Glucose NEG No No No Aug 25 [Mass/vol informati informati informati 2016 1:20 ume] in on in on in on in PM Urine by source source source Test data data data strip Ketones TRACE NEG mg/dL Abnorma No Aug 25 l 2016 [Presen tion in 1:20 PM ce] in source Urine data by Automat ed test strip Mucus 1+ NEG No Abnorma No Aug 25 [Pres informa l inform2016 ce] in tion in tion in 1:20 PM Urine source source sedimen data data t by Light microsc opy Nitrite NEGATIV NEG No No No Aug 25 E informa informa informa 2016 [Presen tion in tion in tion in 1:20 PM ce] in source source source Urine data data data by Test strip pH of 5.0 - 8.5 No Normal No Aug 25 Urine informati informati 2016 1:20 on in on in PM source source data data Protein NEG mg/dL High No Aug 25 [Mass/vol informati 2016 1:20 ume] in on in PM Urine by source Automated data test strip Specific 1.005 - No Normal No Aug 25 gravity 1.030 informati informati 2016 1:20 of Urine on in on in PM source source data data Urobili 1.0 NEG E.U./dL No No Aug 25 nogen informa informa 2017 [Presen tion in tion in 1:20 PM ce] in source source Urine data data by Test strip Drugs identified in Urine by Screen method [...] No No Aug 11 julia informati informati 2016 9:40 [Mass/vol on in on in AM ume] in source source Urine by data data Screen method Benzodiaz 200 ng/mL ng/mL No No Aug 11 epines informati informati 2016 9:40 [Mass/vol on in on in AM ume] in source source Serum or data data Plasma by Screen method Cocaine <300 ng/g No No Aug 11 [Mass/vol informati informati 2016 9:40 ume] in on in on in AM Unspecifi source source ed data data specimen Methadone <300 ng/mL No No Aug 11 informati informati 2016 9:40 [Mass/vol on in on in AM ume] in source source Unspecifi data data ed specimen Opiates <300 ng/mL High This is Aug 11 [Mass/vol an 2016 9:40 ume] in UNCONFIRM AM Unspecifi ED ed result. specimen This result is for medicalpu rposes and/or treatment only. Phencycli <25 ng/mL No No Aug 11 dine informati informati 2016 9:40 [Mass/vol on in [...] No Jul 10 mine E informa informa 2017 [Presen tion in tion in 9:00 AM [...] Ampheta NEGATIV <1000 ng/mL No No May 8 mine E informa informa 2017 [Presen tion in tion in 2:50 PM [...] No No Sep 8 [Mass/vol informati informati 2016 2:50 ume] in on in on in [...] No No Sep 8 dine informati informati 2016 2:50 [Mass/vol on in on in PM ume] in source source Unspecifi data data ed specimen 11-Hydr NEGATIV <50 ng/mL No No Sep 8 oxy E informa informa 2017 delta-9 [...] No No May 09 julia informati informati 2016 1:15 [Mass/vol on in on in PM ume] in source source Urine by data data Screen method Benzodiaz 200 ng/mL ng/mL No No May 09 epines informati informati 2017 1:15 [Mass/vol on in on in PM ume] in source source Serum or data data Plasma by Screen method Cocaine <300 ng/g No No Apr 11 [Mass/vol informati informati 2017 1:15 ume] in on in on in PM Unspecifi source source ed data data specimen Methadone <300 ng/mL No No May 09 informati informati 2017 1:15 [Mass/vol on in on in PM ume] in source source Unspecifi data data ed specimen Opiates <300 ng/mL High This is May 09 [Mass/vol an 2016 1:15 ume] in UNCONFIRM PM Unspecifi ED ed result. specimen This result is for medicalpu rposes and/or treatment only. Phencycli <25 ng/mL No No May 09 dine informati informati 2017 1:15 [Mass/vol on in [...] No Apr 08 mine E informa informa 2017 [Presen tion in tion in 2:15 PM ce] in source source Urine data data by Screen method [place] <200 ng/mL No No Apr 08 julia informati informati 2017 2:15 [Mass/vol on in [...] No Apr 08 oxy E informa informa 2016 delta-9 tion in tion in 2:15 PM [...] No Mar 11 mine E informa informa 2016 [Presen tion in tion in 10:00 ce] [...]
[2017-08-25 18:48] VITALS: BP 129/57
[2017-08-25 18:57] VITALS: BP 129/57
[2017-08-25] MEDS ORDERED: AMBIEN 10MG TAB10 MG PO (19:08)
[2017-08-25 19:15] VITALS: BP 110/48
[2017-08-25 20:04] VITALS: BP 110/48
[2017-08-26] VITALS (8 sets, daily range): BP systolic 106–145; BP diastolic 44–67
[2017-08-26 06:45] LABS: LYMPH # 1.3 K/mm3 (0.7-4.5)
[2017-08-26 06:54] LABS: HEMOGLOBIN 10.3 g/dL (12.2-16.2)
--- NOTE | 2017-08-26 09:16 | HISTORY AND PHYSICAL REPORT ---
Demographics: Admit date: 08/25/17 Chief complaint: sob PRIMARY DIAGNOSIS: BILATERAL PNEUMONIA Allergies: Coded Allergies: Iodinated Contrast- Oral and IV Dye (IODINATED CONTRAST MEDIA - IV DYE) () Latex, Natural Rubber (02/01/16) ciprofloxacin (From CIPRO) (02/01/16) History of present illness: History of present illness: 72-year-old female presented to the ER with complaints of shortness of breath and weakness. Patient states about a week ago she had the flu and slowly progressed over the last 3 days with diarrhea and weakness. Patient states 2 days prior to admission was in bed due to weakness. Patient states the last thing she remembers at home was talking to her and her daughter about how sick she was and they woke up in the ER. Patient was brought in via ambulance. Patient admitted for pneumonia with IV antibiotics waiting for culture Past medical history: Family HX Diabetes No CAD Yes Hypertension Yes Hyperlipidemia No Cancer Yes TB No Immunization HX DT/Tetanus 1-4 YRS Flu [id number] Pneumonia Received In Past TB Test in last year No General CAD? No Angina: Yes OR: Yes Hypertension? Yes Hyperlipidemia? Yes CHF? No DVT? No PE? No COPD? Yes Asthma? Yes Anemia? No GERD? Yes Gastric ulcers? No GI Bleed? No Hernia? No Thyroid Problems? No Hypothyroidism? No CVA? Yes Seizures? No Diabetes? No Renal Insuffiency? No UTI? No Stones? No BPH? No GB Disease: Yes Nephritic Syndrome? No Asplenia? No Hepatitis? No Sickle Cell Disease? No Arthritis? Yes Migraines? No Cataracts? Yes Glaucoma? No MRSA? No HIV? No TB? No Anxiety? Yes Depression? No Cancer? No More? No Past Surgical HX Previous Surgery?Y Coronary Artery Bypass SEVERAL LUMPECTOMIES GALLBLADDER HYSTERECTOMY D&C- SEVERAL STENT PLACEMENT X4 Current home meds: Reported Medications HYDROCODONE/ACETAMINOPHEN ([place] 10-325 Tablet) 1 TAB PO Q6H Atorvastatin Calcium (Atorvastatin) 40 MG PO QHS ISOSORBIDE MONONITRATE (Isosorbide Mononitrate ER) 50 MG PO BID Zolpidem Tartrate (Ambien 10MG) 10 MG PO QHS ASPIRIN (Aspirin) 81 MG PO DAILY Pantoprazole Sodium (Protonix 40MG TAB) 40 MG PO DAILY CLOPIDOGREL BISULFATE (PLAVIX) 75 MG PO DAILY RANOLAZINE (RANEXA) 500 MG PO BID Clonazepam (Clonazepam 1MG) 1 MG PO BIDP PRN anxiety #60 DONEPEZIL HCL (Donepezil HCl) 10 MG PO QHS #30 Social Hx: Smoking HX Tobacco No Are you/the child exposed to second-hand smoke: No Alcohol Alcohol: No Hx of Drug Use Drug Use? No Review of systems: Constitutional see HPI, weakness. Respiratory see HPI, cough, shortness of breath. Cardiovascular see HPI Gastrointestinal/Abdominal see HPI, diarrhea Genitourinary No: see HPI. Musculoskeletal No: see HPI. Neurological Yes: see HPI, weakness. Exam: Lab data for last 24 hours: Laboratory Tests 08/26/17 0603: WBC 12.1 H, RBC 3.55 L, Hgb 10.3 L, Hct 32.0 L, MCV 90.3, RDW 13.2, Plt Count 216, MPV 7.4, Gran % 83.5 H, Gran # 10.1 H, Lymphocytes % 11.0, Monocytes % 3.6, Eosinophils % 1.5, Basophils % 0.4, Lymphocytes # 1.3, Monocytes # 0.4, Eosinophils # 0.2, Basophils # 0.1, PUBS MCHC 32.2, MCH 29.1 08/25/17 1435: Lactic Acid 1.6 08/25/17 1320: B-Natriuretic Peptide 215 H 08/25/17 1320: Sodium 136, Potassium 3.5, Chloride 99, Carbon Dioxide 28, BUN 10, Creatinine 1.1 H, Estimated Creat Clear 44 L, Estimated GFR (MDRD) 49 L, Glucose 80, Calcium 9.5, Total Bilirubin 0.8, AST 25, ALT 28, Alkaline Phosphatase 98, Creatine Kinase 65, CK-MB (CK-2) Rel Index 0.8, CK and CKMB Interp < 0.5, Troponin I < 0.02, Total Protein 7.8, Albumin 3.1 L, Globulin 4.7 H, Albumin/ Globulin Ratio 0.7 L, Amylase 20 L, Lipase 48 L, WBC 16.9 H, RBC 4.54, Hgb 13.2, Hct 40.3, MCV 88.8, RDW 13.1, Plt Count 294, MPV 7.4, Gran % 91.6 H, Gran # 15.5 H, Total Counted 100, Lymphocytes % 4.9 L, Monocytes % 2.3, Eosinophils % 0.9, Basophils % 0.4, Neutrophils 92 H, Lymphocytes (Manual) 5 L, Lymphocytes # 0.8, Monocytes (Manual) 2, Monocytes # 0.4, Eosinophils # 0.2, Eosinophils # (Manual) 1, Basophils # 0.1, RBC/WBC/PLT Morphology NORMAL, Platelet Estimate NORMAL, PUBS MCHC 32.5, MCH 28.8, Mycoplasma pneumon IgM NON- REACTIVE, Urine Color YELLOW, Urine Appearance CLEAR, Urine pH 6.0, Ur Specific [place] 1.020, Urine Protein TRACE H, Urine Ketones TRACE H, Urine Blood NEGATIVE, Urine Nitrate NEGATIVE, Urine Bilirubin NEGATIVE, Urine Urobilinogen 1.0, Ur Leukocyte Esterase 1+ H, Urine RBC OCC, Urine WBC 3-5, Ur Squamous Epith Cells OCC, Urine Bacteria 2+, Urine Glucose NEGATIVE Microbiology 08/25 1955 SPUTUM: Sputum Culture - RES 08/25 1955 SPUTUM: Gram Stain - RES 08/25 1435 BLOOD: Anaerobic Blood Culture - RECD 08/25 143 BLOOD: Aerobic Blood Culture - RECD 08/25 143 BLOOD: Anaerobic Blood Culture - RECD 08/25 143 BLOOD: Aerobic Blood Culture - RECD 08/25 1320 URINE CATH: Urine Culture - RES Admission vital signs: 1ST Vital Signs Result Date Time Pulse Ox 95 08/25 1311 B/P 118/57 08/25 1311 Temp 98.9 08/25 1311 Pulse 85 08/25 1311 Resp 16 08/25 1311 O2 Flow Rate 2 08/25 1652 O2 Delivery OXYGEN 08/25 1848 Exam General appearance: normal appearance, alert, active, awake, no acute distress Eyes: normal exam ENT: normal exam Neck: normal inspection, full range of motion Cardiovascular: normal exam, regular rate & rhythm Respiratory: on oxygen, diminished breath sounds ABD: normal exam, normal bowel sounds, soft Genitourinary: normal voiding & quantity Extremities: normal exam, moves all, warm Musculoskeletal: normal exam Skin: normal exam, intact, warm Neuro: normal exam, alert, intact, oriented Plan: Problem List 1. Bilateral pneumonia Plan: Dr. Pena rounded earlier today. IV antibiotics waiting for sputum culture. Advised patient to move around the room and be out of bed at 0915
--- NOTE | 2017-08-26 11:22 | PHARMACY CLINIC NOTE ---
Patient Demographics Patient Demographics Admission date: 08/25/17 Date: 08/26/17 Time: 1122 Allergies Coded Allergies: Iodinated Contrast- Oral and IV Dye (IODINATED CONTRAST MEDIA - IV DYE) () Latex, Natural Rubber (02/01/16) ciprofloxacin (From CIPRO) (02/01/16) HEIGHT- FT: 5 IN: 4.00 K.998 VTE General Information Labs: Laboratory Tests 08/26 08/25 0603 1320 Hematology Hgb (12.2 - 16.2 g/dL) 10.3 L 13.2 Hct (37.0 - 47.0 %) 32.0 L 40.3 Plt Count (142 - 424 K/mm3) 216 294 Disclaimer The following section includes nursing documentation that has been pulled in for pharmacy review. Patient's VTE score: 4 Patient's VTE Risk: LOW RISK Clinical trial participant? No VTE prophylaxis NQF [id number] VTE prophylaxis ordered? Yes Type of prophylaxis/treatment: YANN at 1122
[2017-08-27] VITALS (9 sets, daily range): BP systolic 133–157; BP diastolic 57–84
--- NOTE | 2017-08-27 08:15 | ACUTE CARE PROGRESS NOTE (QUA) ---
Progress Notes Subjective Date 08/27/17 Time 0811 Note doing better Patient/family reports: feeling better Nursing reports: no complaints Objective Findings Last VS-Temp:98.8 B/P:143/69 Pulse:88 Resp:16 SaO2:90 ROOM AIR Last weight lbs:151 oz:0 K.492 Method:Bed Scales Exam General appearance: alert, awake Eyes: PERRLA ENT: dry mucous membranes Neck: no JVD Cardiovascular: regular rate & rhythm Respiratory: no respiratory distress, rhonchi ABD: soft Genitourinary: no hematuria Extremities: moves all Musculoskeletal: equal muscle strength Skin: intact Neuro: alert, shot man II-XII nml as tested Reviewed: allergies, medications, vital signs, lab results Assessment/Plan Problem List 1. Bilateral pneumonia Patient condition Stable Plan: continue current care This inpt stay is expected to cross 2 MNs from start of care Yes Comments: doing better will inc activity at 0814
--- NOTE | 2017-08-27 08:15 | ACUTE CARE PROGRESS NOTE (QUA) ---
Progress Notes Subjective Date 08/27/17 Time 0811 Note doing better Patient/family reports: feeling better Nursing reports: no complaints Objective Findings Last VS-Temp:98.8 B/P:143/69 Pulse:88 Resp:16 SaO2:90 ROOM AIR Last weight lbs:151 oz:0 K.492 Method:Bed Scales Exam General appearance: alert, awake Eyes: PERRLA ENT: dry mucous membranes Neck: no JVD Cardiovascular: regular rate & rhythm Respiratory: no respiratory distress, rhonchi ABD: soft Genitourinary: no hematuria Extremities: moves all Musculoskeletal: equal muscle strength Skin: intact Neuro: alert, full stack net developer II-XII nml as tested Reviewed: allergies, medications, vital signs, lab results Assessment/Plan Problem List 1. Bilateral pneumonia Patient condition Stable Plan: continue current care This inpt stay is expected to cross 2 MNs from start of care Yes Comments: doing better will inc activity at 0814
[2017-08-28 04:21] VITALS: BP 136/51
[2017-08-28 07:06] LABS: HEMOGLOBIN 9.3 g/dL (12.2-16.2); LYMPH # 1.2 K/mm3 (0.7-4.5); LYMPH % 13.3 % (10-50.0)
[2017-08-28 08:00] VITALS: BP 149/62
[2017-08-28 08:07] VITALS: BP 149/62
[2017-08-28] MEDS ORDERED: ZITHROMAX Z PA250 MG PO (08:58)
[2017-08-28] MEDS ORDERED: PREDNISONE 20MG20 MG PO (08:58)
--- NOTE | 2017-08-28 09:01 | ACUTE CARE PROGRESS NOTE (QUA) ---
Progress Notes Subjective Date 08/28/17 Time 0858 Patient/family reports: feeling better, no complaints Nursing reports: alert, no complaints Objective Findings Laboratory Tests 08/28/17 0615: Sodium 136, Potassium 3.0 L, Chloride 103, Carbon Dioxide 27, BUN 6 L, Creatinine 0.8, Estimated Creat Clear 67, Estimated GFR (MDRD) 70, Glucose 86, Calcium 8.2 L, WBC 9.0, RBC 3.16 L, Hgb 9.3 L, Hct 28.3 L, MCV 89.6, RDW 13.6, Plt Count 206, MPV 7.4, Gran % 77.4, Gran # 7.0, Lymphocytes % 13.3, Monocytes % 6.6, Eosinophils % 2.3, Basophils % 0.4, Lymphocytes # 1.2, Monocytes # 0.6, Eosinophils # 0.2, Basophils # 0.0, PUBS MCHC 33.0, MCH 29.5 Vital Signs Date Time Temp Pulse Resp B/P Pulse O2 O2 Flow FiO2 Ox Delivery Rate 08/28 0807 98.4 71 20 149/62 92 2 08/28 0800 2 08/28 0800 98.4 71 20 149/62 92 OXYGEN 2 08/28 0653 2 08/28 0646 18 08/28 0604 2 08/28 0604 94 2 08/28 0547 2 08/28 0500 2 08/28 0421 2 08/28 0421 98.6 69 18 136/51 97 ROOM AIR 08/28 0300 2 08/28 0142 3 08/28 0115 3 08/28 0009 18 08/27 2351 3 08/27 2351 98.8 73 18 143/62 95 ROOM AIR 08/27 2305 2 08/27 2100 82 ROOM AIR 08/27 2059 99.8 76 18 150/84 96 08/27 1949 100.2 76 18 150/84 96 ROOM AIR 08/27 1904 18 08/27 1600 99.6 77 18 135/57 89 ROOM AIR 08/27 1454 18 08/27 1200 98.2 78 18 133/59 87 ROOM AIR 08/27 0926 18 08/27 0900 98.8 88 18 143/69 90 Current Medications Hydrocodone Bitart/Acetaminophen 0 .STK-MED ONE PO (DC) Hydrocodone Bitart/Acetaminophen 0 .STK-MED ONE PO (DC) Hydrocodone Bitart/Acetaminophen 0 .STK-MED ONE PO (DC) Hydrocodone Bitart/Acetaminophen 0 .STK-MED ONE PO (DC) Azithromycin 500 MG Q24H IV Sodium Chloride 250 ML Aspirin 81 MG DAILY PO Ceftriaxone Sodium 1 GM DAILY IV Sodium Chloride 50 ML Clopidogrel Bisulfate 75 MG DAILY PO Isosorbide Mononitrate 60 MG DAILY PO Pantoprazole Sodium 40 MG DAILY PO Atorvastatin Calcium 40 MG QHS PO Donepezil HCl 10 MG QHS PO Ranolazine 500 MG BID PO Albuterol 2 PUFFS QIDRT IH Acetaminophen 650 MG Q4HP PRN PO Albuterol/Ipratropium 3 ML Q6H6 INH Albuterol/Ipratropium 3 ML Q1HP PRN INH Clonazepam 1 MG BIDP PRN PO Guaifenesin/Dextromethorphan 10 ML Q4HP PRN PO Hydrocodone Bitart/Acetaminophen 1 TAB Q6H PO Influenza Virus Vaccine Quadrival 0.5 ML PRN PRN IM Sodium Chloride 1,000 ML .Q8H IV Last VS-Temp:98.4 B/P:149/62 Pulse:71 Resp:20 SaO2:92 OXYGEN Last weight lbs:151 oz:6 K.663 Method:Bed Scales Exam General appearance: normal appearance, awake, no acute distress Eyes: normal exam ENT: normal exam Neck: normal inspection, full range of motion Cardiovascular: normal exam, regular rate & rhythm Respiratory: on oxygen, wheezing ABD: normal exam, soft Genitourinary: normal voiding & quantity Extremities: normal exam, moves all Musculoskeletal: normal exam Skin: normal exam, intact, warm Neuro: normal exam, alert, intact, oriented Reviewed: allergies, medications, vital signs, lab results, radiology report Assessment/Plan Problem List 1. Bilateral pneumonia Qualifiers: Pneumonia type: due to unspecified organism Lung location: unspecified part of lung Qualified Code: J18.9 - Pneumonia, unspecified organism Patient condition Stable Plan: initiate discharge plan This inpt stay is expected to cross 2 MNs from start of care Yes Comments: Rounded with Dr. Pena, discharge Antibiotic Stewardship (2) Current Culture Results Microbiology 08/25 1955 SPUTUM: Sputum Culture - COMP 08/25 1955 SPUTUM: Gram Stain - COMP 08/25 1435 BLOOD: Anaerobic Blood Culture - RECD 11/27 1435 BLOOD: Aerobic Blood Culture - RECD 08/25 1320 URINE CATH: Urine Culture - RES at 0900
--- NOTE | 2017-08-28 09:04 | DISCHARGE SUMMARY STANDARD ---
Demographics Admit date: 08/25/17 Discharge date: 08/28/17 History of present illness History of present illness 72-year-old female presented to the ER with complaints of shortness of breath and weakness. Patient states about a week ago she had the flu and slowly progressed over the last 3 days with diarrhea and weakness. Patient states 2 days prior to admission was in bed due to weakness. Patient states the last thing she remembers at home was talking to her and her daughter about how sick she was and they woke up in the ER. Patient was brought in via ambulance. Patient admitted for pneumonia with IV antibiotics waiting for culture Hospital Course Hospital Course: Pneumonia-IV antibiotics, neb treatments, steroids, IV fluids. Patient states she feels better today and has oxygen at home she can use when necessary. We'll discharge home today with follow-up on Friday in the office with Dr. Pena. Discharge diagnoses Problem List 1. Bilateral pneumonia Medications Medications: Discharge meds are as noted. Follow up Follow up in office in: 6 DAYS with: Jean NICHOLE,Eric Alvarez Comment: Rounded with Dr. Pena at [id number]
[2017-08-28 09:15] VITALS: BP 149/62
== END 2017-08-28 10:10 | disposition home or self-care (01) | DRG 195 ==
LOC: ER 13:09 → 2ND 17:45
PROVIDERS: Emergency Medicine; General Practice
DX: J18.9 Pneumonia, unspecified organism (principal); I10 Essential (primary) hypertension; Z95.5 Presence of coronary angioplasty implant and graft; Z95.1 Presence of aortocoronary bypass graft
CPT/HCPCS: J0456; J2405

== ENCOUNTER → 2017-09-03 | Outpatient (CLI) | payer MEDICARE ==
[~2017-09-03] MED LIST changes: +AMBIEN 10MG TAB10 MG PO; +PREDNISONE 20MG20 MG PO; +ZITHROMAX Z PA250 MG PO
[2017-09-03 17:32] LABS: LYMPH # 1.5 K/mm3 (0.7-4.5); LYMPH % 13.3 % (10-50.0)
[2017-09-03 17:41] LABS: HEMOGLOBIN 10.8 g/dL (12.2-16.2)
[2017-09-03 18:06] LABS: BUN 12 mg/dL (7-18)
[2017-09-03 18:08] LABS: GFR (ESTIMATED) 54 ML/MIN (59-)
== END ==
LOC: LAB 17:14
PROVIDERS: Emergency Medicine
DX: E78.5 Hyperlipidemia, unspecified (principal)